=== PATIENT | male | born 1995 | race African-American/Black ===

== ENCOUNTER → 2017-03-11 | Outpatient (CLI) | payer OTHER ==
--- NOTE | 2017-03-11 12:20 | DIAGNOSTIC IMAGING REPORT ---
(BARIUM SWALLOW) ESOPHAGUS CLINICAL HISTORY: K50.90,R13.10chest and throat pain. COMPARISON STUDY: None FLUOROSCOPY TIME: 1 minute. 20 fluoroscopic spot images were acquired.. FINDINGS: The patient swallowed effervescent granules and barium without difficulty. No mass lesions or ulcerations are evident within the esophagus. The swallowing mechanics appeared normal. There is no esophageal stricture. There is no reflux. The patient swallowed a one half inch barium which freely passed into the stomach. IMPRESSION: Normal study Electronically signed by: Jeremie Irwin M.D. 03/11/2017 12:18 PM Dictated Date/Time: 03/11/2017 12:08 PM
== END | disposition home or self-care (01) ==
LOC: C.RAD 11:43
PROVIDERS: ATTEND Internal Medicine
DX: R13.10 Dysphagia, unspecified (principal); K50.90 Crohn's disease, unspecified, without complications